=== PATIENT | male | born 1965 | race Caucasian/White ===

== ENCOUNTER 2019-03-20 17:48 | Inpatient (IN) | payer MEDICAID ==
[~2019-03-20] VITALS: Ht 175.3 cm; Wt 62.0 kg
--- NOTE | 2019-03-20 18:19 | NUR ---
Pt assessed, c/o SOB since coming to [place] from [place] 3 days ago. Pt reports hx CHF and did not take his medication today. Takes 80 mg Lasix daily, Lisinopril, Spironolactone and Carvedilol but does not know doses of the other meds. Pt reports using Meth yesterday. Denies CP or recent illness. Call light within reach, will cont to monitor.
[2019-03-20 18:28] LABS: BASOPHILS # (AUTO) 0.17 x10^3/uL (0-0.1); BASOPHILS % (AUTO) 2 % (0-1); EOSINOPHILS # (AUTO) 0.02 x10^3/uL (0-0.4); EOSINOPHILS % (AUTO) 0 % (1-7); LYMPHOCYTES # (AUTO) 1.45 x10^3/uL (1-3.4); LYMPHOCYTES % (AUTO) 14 % (22-44); MD NO; MEAN CORPUSCULAR HEMOGLOBIN 29.8 pg (27.5-34.5); MEAN CORPUSCULAR HGB CONC 32.6 g/dL (33.2-36.2); MEAN CORPUSCULAR VOLUME 91.2 fL (81-97); MONOCYTES # (AUTO) 0.79 x10^3/uL (0.2-0.8); MONOCYTES % (AUTO) 8 % (2-9); NEUTROPHILS % (AUTO) 76 % (42-75); PLATELET COUNT 375 x10^3/uL (130-400); RED CELL DISTRIBUTION WIDTH 14.8 % (9.4-14.8)
[2019-03-20 18:35] LABS: ALBUMIN 3.7 g/dL (3.4-5.0); ANION GAP 13 mmol/L (5-15); CALCIUM 9.2 mg/dL (8.5-10.1); CHLORIDE 101 mmol/L (98-107); CREATININE 1.78 mg/dL (0.7-1.3)
[2019-03-20 18:39] LABS: TROPONIN I 0.137 ng/mL (0.000-0.045)
--- NOTE | 2019-03-20 19:08 | NUR ---
ASSUMED CARE OF PT AWAITING ADMIT BED, PT IN NAD
[2019-03-20] MEDS ORDERED: SPIR25TA5 PO (19:18)
[2019-03-20] MEDS ORDERED: FURO-93 PO (19:18)
[2019-03-20] MEDS ORDERED: LISI-424 PO (19:19)
[2019-03-20] MEDS ORDERED: CARV3.12 PO (19:19)
[2019-03-20] MEDS ORDERED: ASPIRIN 81 MG TABLET CHEW ONE (19:23)
[2019-03-20] MEDS ORDERED: ASPIRIN 81 MG TABLET CHEW PO ONE (19:30)
--- NOTE | 2019-03-20 19:49 | NUR ---
REPORT TO IL[facility] PT TO FLOOR WITH TECH
[2019-03-20] MEDS ORDERED: FUROSEMIDE 40 MG/4 ML IV ONE (20:00)
[2019-03-20] MEDS ORDERED: hydrALAzine 20 MG/ML, 1ML IVPush PRN (20:00)
[2019-03-20] MEDS ORDERED: NITROGLYCERIN OINT 2%, 1GM TP ONE (20:00)
[2019-03-21 00:51] LABS: TROPONIN I 0.128 ng/mL (0.000-0.045)
[2019-03-21 00:54] VITALS: BP 105/65
[2019-03-21 05:55] LABS: AMPHETAMINE SCREEN, URINE Negative (Negative); BARBITURATE SCREEN, URINE Negative (Negative); BENZODIAZEPINE SCREEN, URINE Negative (Negative); CANNABINOID SCREEN, URINE Positive (Negative)
[2019-03-21 05:56] LABS: COCAINE SCREEN, URINE Negative (Negative); METHADONE SCREEN, URINE Negative (Negative); OPIATE SCREEN, URINE Negative (Negative)
[2019-03-21 06:03] LABS: ANION GAP 10 mmol/L (5-15); CALCIUM 8.8 mg/dL (8.5-10.1); CHLORIDE 104 mmol/L (98-107)
[2019-03-21 06:09] LABS: TROPONIN I 0.132 ng/mL (0.000-0.045)
[2019-03-21 06:18] LABS: BASOPHILS # (AUTO) 0.06 x10^3/uL (0-0.1); BASOPHILS % (AUTO) 1 % (0-1); EOSINOPHILS # (AUTO) 0.11 x10^3/uL (0-0.4); EOSINOPHILS % (AUTO) 2 % (1-7); LYMPHOCYTES # (AUTO) 1.28 x10^3/uL (1-3.4); LYMPHOCYTES % (AUTO) 17 % (22-44); MD NO; MEAN CORPUSCULAR HEMOGLOBIN 28.8 pg (27.5-34.5); MEAN CORPUSCULAR HGB CONC 31.8 g/dL (33.2-36.2); MEAN CORPUSCULAR VOLUME 90.8 fL (81-97); MEAN PLATELET VOLUME 7.8 fL (7.4-10.4); MONOCYTES # (AUTO) 0.65 x10^3/uL (0.2-0.8); MONOCYTES % (AUTO) 9 % (2-9); NEUTROPHILS # (AUTO) 5.25 x10^3/uL (1.8-6.8); NEUTROPHILS % (AUTO) 71 % (42-75); PLATELET COUNT 271 x10^3/uL (130-400); RED CELL DISTRIBUTION WIDTH 14.8 % (9.4-14.8)
[2019-03-21 07:18] VITALS: BP 109/78
[2019-03-21 12:59] VITALS: BP 120/69
[2019-03-21 14:11] LABS: HEMOGLOBIN A1C 6.2 % (4.2-6.3)
[2019-03-21] MEDS ORDERED: ALBUTEROL SULFATE 2.5 MG/3 ML NPPB PRN (17:30)
[2019-03-21] MEDS: POTASSIUM CHLORIDE 20 MEQ TAB.ER.PRT PO SCH (18:03)
[2019-03-21] MEDS: FUROSEMIDE 40 MG/4 ML IV SCH (18:03)
[2019-03-21 18:46] VITALS: BP 116/72
[2019-03-21] MEDS ORDERED: LORazepam 0.5MG TABLET PO ONE (22:30)
[2019-03-21] MEDS ORDERED: FUROSEMIDE 40 MG/4 ML IV ONE (23:30)
[2019-03-22 04:43] LABS: BASOPHILS # (AUTO) 0.11 x10^3/uL (0-0.1); BASOPHILS % (AUTO) 1 % (0-1); EOSINOPHILS # (AUTO) 0.08 x10^3/uL (0-0.4); EOSINOPHILS % (AUTO) 1 % (1-7); LYMPHOCYTES # (AUTO) 1.48 x10^3/uL (1-3.4); LYMPHOCYTES % (AUTO) 17 % (22-44); MD NO; MEAN CORPUSCULAR VOLUME 90.9 fL (81-97); MEAN PLATELET VOLUME 7.8 fL (7.4-10.4); MONOCYTES % (AUTO) 9 % (2-9); NEUTROPHILS # (AUTO) 6.25 x10^3/uL (1.8-6.8); NEUTROPHILS % (AUTO) 72 % (42-75); PLATELET COUNT 300 x10^3/uL (130-400); RED CELL DISTRIBUTION WIDTH 15.3 % (9.4-14.8)
[2019-03-22 04:57] LABS: ANION GAP 8 mmol/L (5-15); CALCIUM 8.9 mg/dL (8.5-10.1); CHLORIDE 102 mmol/L (98-107); CREATININE 1.58 mg/dL (0.7-1.3)
[2019-03-22 07:41] VITALS: BP 107/75
[2019-03-22] MEDS: POTASSIUM CHLORIDE 20 MEQ TAB.ER.PRT PO SCH (08:11)
[2019-03-22] MEDS: SPIRONOLACTONE 25 MG TABLET PO SCH (08:11)
[2019-03-22] MEDS: FUROSEMIDE 40 MG/4 ML IV SCH ×2 (08:11→17:10)
[2019-03-22] MEDS: LISINOPRIL 5 MG TABLET PO SCH (08:11)
[2019-03-22] MEDS ORDERED: CARVEDILOL 3.125 MG TABLET PO SCH (09:00)
[2019-03-22] MEDS: ASPIRIN 81 MG TABLET EC PO SCH (09:30)
[2019-03-22 12:24] VITALS: BP 92/67
[2019-03-22] MEDS ORDERED: CARVEDILOL 3.125 MG TABLET PO ONE (12:30)
[2019-03-22 18:52] VITALS: BP 99/70
[2019-03-23 01:13] VITALS: BP 108/69
[2019-03-23] MEDS ORDERED: POTASSIUM CHLORIDE 20 MEQ TAB.ER.PRT PO ONE (02:00)
[2019-03-23] MEDS ORDERED: POTASSIUM CHLORIDE 20 MEQ TAB.ER.PRT ONE (02:03)
[2019-03-23] MEDS: ASPIRIN 81 MG TABLET EC PO SCH (06:03)
[2019-03-23 06:22] LABS: ANION GAP 8 mmol/L (5-15); CALCIUM 9.7 mg/dL (8.5-10.1); CHLORIDE 109 mmol/L (98-107); CREATININE 1.26 mg/dL (0.7-1.3)
[2019-03-23 06:24] LABS: BASOPHILS # (AUTO) 0.05 x10^3/uL (0-0.1); BASOPHILS % (AUTO) 1 % (0-1); EOSINOPHILS # (AUTO) 0.13 x10^3/uL (0-0.4); EOSINOPHILS % (AUTO) 2 % (1-7); LYMPHOCYTES # (AUTO) 1.32 x10^3/uL (1-3.4); LYMPHOCYTES % (AUTO) 16 % (22-44); MD NO; MEAN CORPUSCULAR HEMOGLOBIN 29.9 pg (27.5-34.5); MEAN CORPUSCULAR HGB CONC 32.4 g/dL (33.2-36.2); MEAN CORPUSCULAR VOLUME 92.3 fL (81-97); MEAN PLATELET VOLUME 8.1 fL (7.4-10.4); MONOCYTES # (AUTO) 0.67 x10^3/uL (0.2-0.8); MONOCYTES % (AUTO) 8 % (2-9); NEUTROPHILS # (AUTO) 6.37 x10^3/uL (1.8-6.8); NEUTROPHILS % (AUTO) 75 % (42-75); PLATELET COUNT 276 x10^3/uL (130-400); RED BLOOD COUNT 4.65 x10^6/uL (4.38-5.82); RED CELL DISTRIBUTION WIDTH 15.2 % (9.4-14.8)
[2019-03-23] MEDS: SPIRONOLACTONE 25 MG TABLET PO SCH (08:56)
[2019-03-23] MEDS: FUROSEMIDE 40 MG/4 ML IV SCH ×2 (08:56→17:59)
[2019-03-23] MEDS: LISINOPRIL 5 MG TABLET PO SCH (08:56)
[2019-03-23] MEDS ORDERED: CARVEDILOL 6.25 MG TABLET PO SCH (09:00)
[2019-03-23 09:06] VITALS: BP 96/73
[2019-03-23] MEDS ORDERED: CARVEDILOL 6.25 MG TABLET ONE (09:33)
[2019-03-23] MEDS: ENOXAPARIN 40 MG/0.4 ML SQ SCH (09:36)
[2019-03-23 13:23] VITALS: BP 91/60
[2019-03-23 18:56] VITALS: BP 88/62
[2019-03-23 21:21] VITALS: BP 93/71
[2019-03-24 01:39] VITALS: BP 95/67
[2019-03-24] MEDS: ASPIRIN 81 MG TABLET EC PO SCH (05:39)
[2019-03-24 05:56] LABS: ANION GAP 6 mmol/L (5-15); CALCIUM 9.5 mg/dL (8.5-10.1); CHLORIDE 107 mmol/L (98-107); CREATININE 1.39 mg/dL (0.7-1.3)
[2019-03-24 08:06] VITALS: BP 85/64
[2019-03-24 08:36] VITALS: BP 92/85
[2019-03-24] MEDS: ENOXAPARIN 40 MG/0.4 ML SQ SCH (08:58)
[2019-03-24] MEDS: SPIRONOLACTONE 25 MG TABLET PO SCH (08:58)
[2019-03-24] MEDS: LISINOPRIL 5 MG TABLET PO SCH (08:58)
[2019-03-24] MEDS: FUROSEMIDE 40 MG/4 ML IV SCH ×2 (08:58→17:00)
[2019-03-24] MEDS: CARVEDILOL 12.5 MG TABLET PO SCH (08:58)
[2019-03-24 13:04] VITALS: BP 89/63
[2019-03-24] MEDS: ACETAMINOPHEN 325 MG TABLET PO PRN ×2 (17:27→21:45)
[2019-03-24 19:14] VITALS: BP 87/59
[2019-03-25 02:55] VITALS: BP 90/62
[2019-03-25] MEDS: ACETAMINOPHEN 325 MG TABLET PO PRN (03:48)
[2019-03-25] MEDS: ASPIRIN 81 MG TABLET EC PO SCH (05:18)
[2019-03-25 05:44] LABS: BASOPHILS # (AUTO) 0.06 x10^3/uL (0-0.1); BASOPHILS % (AUTO) 1 % (0-1); EOSINOPHILS # (AUTO) 0.01 x10^3/uL (0-0.4); EOSINOPHILS % (AUTO) 0 % (1-7); LYMPHOCYTES # (AUTO) 0.35 x10^3/uL (1-3.4); LYMPHOCYTES % (AUTO) 4 % (22-44); MD NO; MEAN CORPUSCULAR HEMOGLOBIN 29.7 pg (27.5-34.5); MEAN CORPUSCULAR HGB CONC 32.9 g/dL (33.2-36.2); MEAN CORPUSCULAR VOLUME 90.3 fL (81-97); MEAN PLATELET VOLUME 7.8 fL (7.4-10.4); MONOCYTES # (AUTO) 0.38 x10^3/uL (0.2-0.8); MONOCYTES % (AUTO) 5 % (2-9); NEUTROPHILS # (AUTO) 7.35 x10^3/uL (1.8-6.8); NEUTROPHILS % (AUTO) 90 % (42-75); PLATELET COUNT 243 x10^3/uL (130-400)
[2019-03-25 05:53] LABS: ALANINE AMINOTRANSFERASE 39 U/L (12-78); ALBUMIN 3.2 g/dL (3.4-5.0); ANION GAP 9 mmol/L (5-15); CALCIUM 8.8 mg/dL (8.5-10.1); CHLORIDE 103 mmol/L (98-107); CREATININE 1.53 mg/dL (0.7-1.3)
[2019-03-25 05:56] LABS: ALKALINE PHOSPHATASE 91 U/L (45-117); BILIRUBIN,TOTAL 1.2 mg/dL (0.2-1.0); TOTAL PROTEIN 6.8 g/dL (6.4-8.2)
[2019-03-25] MEDS: FUROSEMIDE 40 MG/4 ML IV SCH ×2 (07:30→18:01)
[2019-03-25 08:20] VITALS: BP 83/53
[2019-03-25 09:25] VITALS: BP 90/58
[2019-03-25] MEDS: CARVEDILOL 12.5 MG TABLET PO SCH (09:29)
[2019-03-25] MEDS: LISINOPRIL 5 MG TABLET PO SCH (09:29)
[2019-03-25] MEDS: SPIRONOLACTONE 25 MG TABLET PO SCH (09:29)
[2019-03-25] MEDS: ENOXAPARIN 40 MG/0.4 ML SQ SCH (09:30)
[2019-03-25 12:45] VITALS: BP 87/57
[2019-03-25 21:45] VITALS: BP 80/61
[2019-03-25] MEDS ORDERED: FUROSEMIDE 40 MG/4 ML IV ONE (23:30)
[2019-03-26 01:36] VITALS: BP 92/61
[2019-03-26] MEDS: ASPIRIN 81 MG TABLET EC PO SCH (05:12)
[2019-03-26 05:29] LABS: BASOPHILS # (AUTO) 0.06 x10^3/uL (0-0.1); BASOPHILS % (AUTO) 1 % (0-1); EOSINOPHILS % (AUTO) 0 % (1-7); LYMPHOCYTES # (AUTO) 1.01 x10^3/uL (1-3.4); LYMPHOCYTES % (AUTO) 12 % (22-44); MD NO; MEAN CORPUSCULAR HEMOGLOBIN 29.7 pg (27.5-34.5); MEAN CORPUSCULAR HGB CONC 32.9 g/dL (33.2-36.2); MEAN CORPUSCULAR VOLUME 90.1 fL (81-97); MEAN PLATELET VOLUME 8.2 fL (7.4-10.4); MONOCYTES # (AUTO) 0.84 x10^3/uL (0.2-0.8); MONOCYTES % (AUTO) 10 % (2-9); NEUTROPHILS # (AUTO) 6.63 x10^3/uL (1.8-6.8); NEUTROPHILS % (AUTO) 78 % (42-75); PLATELET COUNT 218 x10^3/uL (130-400); RED BLOOD COUNT 4.45 x10^6/uL (4.38-5.82)
[2019-03-26 05:33] LABS: ALANINE AMINOTRANSFERASE 41 U/L (12-78); ALBUMIN 3.3 g/dL (3.4-5.0); ANION GAP 7 mmol/L (5-15); CALCIUM 8.9 mg/dL (8.5-10.1); CHLORIDE 100 mmol/L (98-107); CREATININE 1.74 mg/dL (0.7-1.3)
[2019-03-26 05:36] LABS: ALKALINE PHOSPHATASE 82 U/L (45-117); BILIRUBIN,TOTAL 0.8 mg/dL (0.2-1.0); TOTAL PROTEIN 6.9 g/dL (6.4-8.2)
[2019-03-26 08:05] VITALS: BP 103/79
[2019-03-26] MEDS: SPIRONOLACTONE 25 MG TABLET PO SCH (08:06)
[2019-03-26] MEDS: FUROSEMIDE 40 MG/4 ML IV SCH (08:06)
[2019-03-26] MEDS: CARVEDILOL 12.5 MG TABLET PO SCH (08:06)
[2019-03-26] MEDS: LISINOPRIL 5 MG TABLET PO SCH (08:06)
[2019-03-26] MEDS ORDERED: CARV12.543 PO (08:47)
[2019-03-26] MEDS ORDERED: FURO40TA6 PO (08:47)
[2019-03-26] MEDS ORDERED: ASPI81TA45 PO (08:47)
[2019-03-26] MEDS: ENOXAPARIN 40 MG/0.4 ML SQ SCH (09:35)
== END 2019-03-26 10:45 | disposition left against medical advice (07) | DRG 280 ==
LOC: ED 18:58 → EDIP 19:44 → 5SO 20:09
PROVIDERS: ADMIT Internal Medicine; ATTEND Internal Medicine
DX: I21.4 Non-ST elevation (NSTEMI) myocardial infarction (principal); N17.0 Acute kidney failure with tubular necrosis; I50.43 Acute on chronic combined systolic (congestive) and diastolic (congestive) heart failure; J96.00 Acute respiratory failure, unspecified whether with hypoxia or hypercapnia; I42.7 Cardiomyopathy due to drug and external agent; I47.2 Ventricular tachycardia; D64.9 Anemia, unspecified; E66.3 Overweight; E74.39 Other disorders of intestinal carbohydrate absorption; E87.6 Hypokalemia; F10.10 Alcohol abuse, uncomplicated; Y90.9 Presence of alcohol in blood, level not specified; F15.10 Other stimulant abuse, uncomplicated; I11.0 Hypertensive heart disease with heart failure; I34.0 Nonrheumatic mitral (valve) insufficiency; Z79.899 Other long term (current) drug therapy; Z87.891 Personal history of nicotine dependence; Z91.14 Patient's other noncompliance with medication regimen
CPT/HCPCS: 36415; 99285; J7613; 71045; 80048; 80053; 80307; 82040; 83036; 83735; 83880; 84484; 85025; 93005; 93306; 94640; G0378; J1650; J1940